=== PATIENT | female | born 1980 | race Caucasian/White ===

== ENCOUNTER → 2017-12-25 | Outpatient (CLI) | payer OTHER ==
[~2017-12-25] MED LIST: ALBINS/ INH; LEVO5TAB2 PO; LISI-729 PO; MONT1TAB3 PO; NORE-18 PO; RANI150T3 PO; VITAMIN D PO
[2017-12-25 16:36] LABS: BASO % 0.2 %; BASO ABS # 0.02 K/uL (0-0.2); EOS ABS # 0.41 K/uL (0-0.5); HEMATOCRIT 38.1 % (37-47); HEMOGLOBIN 12.5 g/dL (12.0-16.0); IG# 0.03 K/uL (0.00-0.02); LYMPH ABS # 3.54 K/uL (1.2-3.4); MEAN CELL VOLUME 83.9 fL (80-100); MEAN CORPUSCULAR HEMOGLOBIN 27.5 pg (25-34); MEAN CORPUSCULAR HGB CONC 32.8 g/dl (32-36); MEAN PLATELET VOLUME 9.3 fL (7.4-10.4); MONO % 6.7 %; MONO ABS # 0.55 K/uL (0.11-0.59); NEUT % 44.7 %; NEUT ABS # 3.68 K/uL (1.4-6.5); PLATELET COUNT 354 K/uL (130-400); RED CELL DISTRIBUTION WIDTH CV 14.8 % (11.5-14.5); RED CELL DISTRIBUTION WIDTH SD 45.3 fL (36.4-46.3); WHITE BLOOD COUNT 8.23 K/uL (4.8-10.8)
[2017-12-25 17:02] LABS: BLOOD UREA NITROGEN 10 mg/dl (7-18); CALCIUM 8.7 mg/dl (8.5-10.1); CARBON DIOXIDE 26 mmol/L (21-32); GLUCOSE 88 mg/dl (70-99); POTASSIUM 3.8 mmol/L (3.5-5.1); SODIUM 138 mmol/L (136-145)
== END | disposition home or self-care (01) ==
LOC: C.LAB1850 15:49
PROVIDERS: ATTEND Obstetrics & Gynecology
DX: Z01.818 Encounter for other preprocedural examination (principal)

== ENCOUNTER 2023-01-05 06:09 | Inpatient (IN) ==
[2023-01-05] MEDS ORDERED: KETOROLAC 30 MG/ML VIAL IV STA (06:30)
[2023-01-05 06:48] LABS: Basophils # (auto) 0.06 K/uL (0-0.2); Basophils % (auto) 0.5 %; Eosinophils # (auto) 0.28 K/uL (0-0.50); Eosinophils % (auto) 2.5 %; Hematocrit (blood only) 37.6 % (37.0-47.0); Hemoglobin 12.6 g/dl (12.0-16.0); Immature Granulocytes # (auto) 0.07 K/uL (0.01-0.20); Immature Granulocytes % (auto) 0.6 %; Lymphocytes # (auto) 2.33 K/uL (1.2-3.4); Lymphocytes % (auto) 20.5 %; Mean Corpuscular Hemoglobin 28.4 pg (25.0-34.0); Mean Corpuscular Hgb Conc 33.5 g/dL (32.0-36.0); Mean Corpuscular Volume 84.9 fL (80.0-100.0); Mean Platelet Volume 10.7 fL (9.4-12.4); Monocytes # (auto) 0.54 K/uL (0.11-0.59); Monocytes % (auto) 4.7 %; Neutrophils # (auto) 8.09 K/uL (1.40-6.50); Neutrophils % (auto) 71.2 %; Platelet Count 306 K/uL (130-400); RDW Coefficient of Variation 13.2 % (11.5-14.5); RDW Standard Deviation 40.7 fL (36.4-46.3); Red Blood Count 4.43 M/uL (4.20-5.40); White Blood Count 11.37 K/ul (4.8-10.8)
[2023-01-05 06:56] LABS: Albumin Globulin Ratio 1.3 (0.9-2); Albumin Level 4.2 gm/dl (3.4-5.0); BUN Creatinine Ratio 7.8 (10-20); Bilirubin,Total 0.4 mg/dl (0.2-1.0); Calcium 9.2 mg/dl (8.6-10.3); Creatinine Clr Calc Pharmacy 78.1 ml/min; Est GFR (African American) 91.4 ml/min; Est GFR (Non-African American) 78.9 ml/min; Globulin 3.3 gm/dl (2.5-4.0); Potassium 3.2 mmol/L (3.5-5.1); Total Protein 7.5 gm/dl (6.0-8.3)
--- NOTE | 2023-01-05 07:22 | XRay Report ---
SINGLE VIEW CHEST CLINICAL HISTORY: Atypical chest pain. FINDINGS: An AP, portable, upright chest radiograph is compared to study dated 01/25/2012. The cardiom ediastinal silhouette is unremarkable. The lungs and pleural spaces are clear noting mild bibasilar a telectasis. No pneumothorax is seen. The bony thorax is grossly intact. IMPRESSION: No active disease in the chest. ACT 112: Negative or not required by law. Electronically signed by: Thien Berrios M.D. 01/05/2023 7:21 AM
--- NOTE | 2023-01-05 07:58 | Emergency Department Note ---
Impression & Plan Chest pain ED Provider Note INFORMANT: Patient ED PROVIDER(S): Cornelius Johnson DO CHIEF COMPLAINT: Retrosternal chest pain to the back PLAN: Disposition: Admission Outpatient prescription management: [none] Discussion with: Surgery and medicine service MEDICAL DECISION MAKING: This is a 42-year-old female who presents to the ED with a chief complaint of retrosternal chest pain that radiates into her back. She states that her symptoms started at 2:30 in the morning. She awoke with them. She states that she took some ibuprofen but shortly thereafter vomited around 3 AM. She also reports some cold sweats. She states now that her pain is just all and not as bad. The patient states that she last ate around suppertime. She had some salad and chicken. On my exam the patient has some tenderness in the epigastric area and right upper quadrant. She otherwise has a normal exam. Lungs are clear. Heart is regular rate and rhythm. Abdomen is otherwise nontender in other areas. No rashes. The patient did have a 10 beat run of V. tach while she was on the monitor in the emergency department. She was symptomatic with this and felt like her heart stopped and then raised. The patient's vital signs here are normal. Her CBC did not show leukocytosis or anemia. Chemistry panel was unremarkable for electrolyte abnormality or kidney dysfunction. Troponin was negative for myocardial infarction or myocarditis. Lipase was negative for pancreatitis. Chest x-ray did not show pneumonia. An EKG shows a sinus bradycardia without ischemic changes. The patient's ultrasound shows findings concerning for acute cholecystitis. I did speak with general surgery as well as the medicine service on the patient. She will be seen for further evaluation and care. Triage Nursing notes reviewed. Vital Signs: reviewed Prior /Outside records reviewed: [none] Differential diagnosis: The differential that was considered includes acute myocardial infarction, acute coronary syndrome, myocarditis, pericarditis, pericardial effusions /tamponade, esophageal perforation, thoracic aortic dissection, pulmonary embolism, pneumonia, pneumothorax, pancreatitis, shingles, acute cholecystitis, perforated abdominal viscus. Diagnostics, as interpreted by me: 12 lead ECG: Sinus bradycardia rate of 52. No ST elevation. No PVCs. Normal QTc. Cardiac Monitoring ordered: 10 beat run of V. tach during the emergency department visit. Otherwise sinus rhythm in the 50s and 60s Medical decision rules: [none] Imaging studies: Chest x-ray: Negative for acute disease. No pneumonia. Gallbladder ultrasound: Cholelithiasis and biliary sludge. Procedures: none. Critical care: none. HPI: See MDM above. PAST MEDICAL HISTORY: See Below PAST SURGICAL HISTORY: See Below SOCIAL HISTORY: See Below HOME MEDICATIONS:See Below ALLERGIES: See Below VITALS: See Below PHYSICAL EXAMINATION: See MDM for positive findings otherwise unremarkable. CONSTITUTIONAL/VITAL SIGNS: Reviewed GENERAL:done as appropriate INTEGUMENTARY: done as appropriate HEAD: done as appropriate EYES: done as appropriate RESPIRATORY: done as appropriate CARDIOVASCULAR:done as appropriate GI/ABDOMEN:done as appropriate EXTREMITIES: done as appropriate NEUROLOGICAL: done as appropriate PSYCHIATRIC:done as appropriate MUSCULOSKELETAL:done as appropriate TRIAGE NURSING DOCUMENTATION REVIEWED. Past Med/Surg History Medical History (Updated 01/05/23 @ 10:42 by Debbie Romero PA-C) Endometriosis GERD (gastroesophageal reflux disease) HTN (hypertension) Kidney stone Pelvic pain Surgical History H/O laparoscopy H/O: hysterectomy S/P tooth extraction Family History Grandmother (Maternal) Breast cancer Grandfather (Maternal) Diabetes Heart disease Mother Hypertension Father Hypertension Aunt Ovarian cancer maternal Grandfather (Paternal) Heart disease Social History Smoking Status: Current every day smoker packs per day: 1; Cigarettes Per Day: 10-20; Do You Dip or Chew Tobacco: No; Preferred Language: Grenadian 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 have: 2 Feels Safe at Home: Yes Allergies Allergies Allergy/AdvReac Type Severity Reaction Status Date / Time Sulfa (Sulfonamide Allergy Severe SHORTNESS Verified 01/05/23 09:08 Antibiotics) OF BREATH adhesive Allergy Intermediate Rash Verified 01/05/23 09:08 Aminoglycosides Allergy Intermediate RASH Verified 01/05/23 09:08 bacitracin Allergy Intermediate RASH Verified 01/05/23 09:08 neomycin Allergy Intermediate RASH Verified 01/05/23 09:08 polymyxin B Allergy Intermediate RASH Verified 01/05/23 09:08 Home Meds Home Medications Medication Instructions Recorded Confirmed levocetirizine 5 mg tablet (Xyzal) 5 mg PO HS 07/29/19 01/05/23 montelukast 10 mg tablet 10 mg PO HS 07/29/19 01/05/23 lisinopril 5 mg tablet 5 mg PO DAILY 09/09/22 01/05/23 omeprazole 20 mg capsule,delayed 20 mg PO DAILY 09/09/22 01/05/23 release Results & Data (ED) Vital Signs Vital Signs - 24 hr 01/05/23 06:17 01/05/23 06:23 01/05/23 06:15 Temperature 36.4 C L Temperature Source Oral Pulse Rate 60 70 58 L Pulse Rate from SpO2 Sensor Pulse Rhythm Regular Respiratory Rate 20 20 Respiratory Depth Shallow Blood Pressure 133/72 Blood Pressure Mean 92 Pulse Oximetry 98 99 Oxygen Delivery Method Room Air Room Air Sepsis Recent Fever Within 48 Hours No Sepsis New/Unexplained Change in Mental Status No Sepsis Action Taken by Nursing No Action Required 01/05/23 07:00 01/05/23 07:30 01/05/23 08:30 Temperature Temperature Source Pulse Rate 53 L 55 L 67 Pulse Rate from SpO2 Sensor 53 L 55 L 65 Pulse Rhythm Respiratory Rate 21 16 18 Respiratory Depth Blood Pressure 122/74 119/74 124/76 Blood Pressure Mean 90 89 92 Pulse Oximetry 96 97 98 Oxygen Delivery Method Sepsis Recent Fever Within 48 Hours Sepsis New/Unexplained Change in Mental Status Sepsis Action Taken by Nursing 01/05/23 09:00 01/05/23 09:30 01/05/23 10:00 Temperature Temperature Source Pulse Rate 76 69 71 Pulse Rate from SpO2 Sensor 79 70 72 Pulse Rhythm Respiratory Rate 17 18 18 Respiratory Depth Blood Pressure 135/76 129/85 131/79 Blood Pressure Mean 95 99 96 Pulse Oximetry 96 97 97 Oxygen Delivery Method Sepsis Recent Fever Within 48 Hours Sepsis New/Unexplained Change in Mental Status Sepsis Action Taken by Nursing 01/05/23 10:30 Temperature Temperature Source Pulse Rate 72 Pulse Rate from SpO2 Sensor 73 Pulse Rhythm Respiratory Rate 15 Respiratory Depth Blood Pressure 122/86 Blood Pressure Mean 98 Pulse Oximetry 97 Oxygen Delivery Method Sepsis Recent Fever Within 48 Hours Sepsis New/Unexplained Change in Mental Status Sepsis Action Taken by Nursing Laboratory Data 01/05/23 06:13 01/05/23 06:13 Lab Results 01/05/23 01/05/23 01/05/23 Range/Units 06:13 06:13 09:00 WBC 11.37 H (4.8-10.8) K/ul RBC 4.43 (4.20-5.40) M/uL Hgb 12.6 (12.0-16.0) g/dl Hct 37.6 (37.0-47.0) % MCV 84.9 (80.0-100.0) fL MCH 28.4 (25.0-34.0) pg MCHC 33.5 (32.0-36.0) g/dL RDW Std Deviation 40.7 (36.4-46.3) fL RDW Coeff of Aayush 13.2 (11.5-14.5) % Plt Count 306 (130-400) K/uL MPV 10.7 (9.4-12.4) fL Immature Gran % (Auto) 0.6 % Neut % (Auto) 71.2 % Lymph % (Auto) 20.5 % [place] % (Auto) 4.7 % Eos % (Auto) 2.5 % Baso % (Auto) 0.5 % Neut # (Auto) 8.09 H (1.40-6.50) K/uL Lymph # (Auto) 2.33 (1.2-3.4) K/uL [place] # (Auto) 0.54 (0.11-0.59) K/uL Eos # (Auto) 0.28 (0-0.50) K/uL Baso # (Auto) 0.06 (0-0.2) K/uL Immature Gran # (Auto) 0.07 (0.01-0.20) K/uL Sodium 140 (136-145) mmol/L Potassium 3.2 L (3.5-5.1) mmol/L Chloride 106 (98-107) mmol/L Carbon Dioxide 25 (21-32) mmol/L Anion Gap 9 (3-11) BUN 7 (6-23) mg/dl Creatinine 0.90 (0.6-1.2) mg/dl Est Cr Clr Drug Dosing 78.1 ml/min Est GFR ( Amer) 91.4 ml/min Est GFR (Non-Af Amer) 78.9 ml/min BUN/Creatinine Ratio 7.8 L (10-20) Glucose 128 H (70-99(Fasting)) mg/dl Calcium 9.2 (8.6-10.3) mg/dl Total Bilirubin 0.4 (0.2-1.0) mg/dl AST 24 (13-39) U/L ALT 31 (7-52) U/L Alkaline Phosphatase 95 (34-104) U/L Troponin I High Sens 3.0 (0-14) pg/ml Total Protein 7.5 (6.0-8.3) gm/dl Albumin 4.2 (3.4-5.0) gm/dl Globulin 3.3 (2.5-4.0) gm/dl Albumin/Globulin Ratio 1.3 (0.9-2) Lipase 25 (11-82) U/L SARS-CoV-2, RNA, NAAT NEGATIVE (NEGATIVE) Administered Medications Discontinued Medications Ketorolac Tromethamine (Ketorolac 30 Mg/Ml Vial) 30 mg IV NOW STA Stop: 01/05/23 06:31 Last Admin: 01/05/23 06:32 Dose: 30 mg Documented By: BENNY Imaging Data Radiologist's Impression: Chest X-Ray 01/05/23 06:07 SINGLE VIEW CHEST CLINICAL HISTORY: Atypical chest pain. FINDINGS: An AP, portable, upright chest radiograph is compared to study dated 01/25/2012. The cardiomediastinal silhouette is unremarkable. The lungs and pleural spaces are clear noting mild bibasilar atelectasis. No pneumothorax is seen. The bony thorax is grossly intact. IMPRESSION: No active disease in the chest. ACT 112: Negative or not required by law. Electronically signed by: Thien Berrios M.D. 01/05/2023 7:21 AM Gallbladder Ultrasound 01/05/23 06:57 ULTRASOUND RIGHT UPPER QUADRANT ABDOMEN CLINICAL HISTORY: Right upper quadrant abdominal pain. COMPARISON STUDY: Abdominal CT dated 09/26/2014. TECHNIQUE: Real-time, grayscale, and color flow sonography of the right upper quadrant of the abdomen was performed. Images are reviewed in the transverse and longitudinal planes. FINDINGS: Liver: The liver is normal in size and echotexture. There is no intrahepatic biliary ductal dilatation. The main portal vein is patent. Gallbladder: The gallbladder is mildly distended and contains both stones and sludge. The gallbladder wall is mildly thickened measuring up to 4 mm and there is mild edematous. No pericholecystic fluid as seen. A sonographic Klein's sign could not be evaluated as the patient received analgesia. The common bile duct measures up to 0.4 cm in diameter. Pancreas: Visualized portions of the pancreatic head are normal in appearance. The majority of the pancreas was not well-visualized due to overlying bowel gas. Right kidney: Survey images of the right kidney demonstrate normal size and echotexture. There is no hydronephrosis. 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 Ascites: None. IMPRESSION: 1. Cholelithiasis and biliary sludge within an abnormal appearing gallbladder. Acute cholecystitis is not excluded and surgical consultation is advised. If c linically warranted a nuclear hepatobiliary scan would be confirmatory. 2. There is no intra or extrahepatic biliary ductal dilatation. ACT 112: Negative or not required by law. Electronically signed by: Thien Berrios M.D. 01/05/2023 8:20 AM Discharge Plan Visit Data Chief Complaint: Chest Pain Stated Complaint: chest pain ED Provider: Cornelius Johnson Discharge Problem: Chest pain Patient Disposition: Being Evaluated by Hospitalist Forms Stand Alone Forms: [facility] Prescriptions Prescriptions: No Action lisinopril 5 mg tablet 5 mg PO DAILY omeprazole 20 mg capsule,delayed release(DR/EC) 20 mg PO DAILY montelukast 10 mg tablet 10 mg PO HS levocetirizine [Xyzal] 5 mg Tablet 5 mg PO HS Referrals Referrals: Ashley Razo DO [Primary Care Provider] -
--- NOTE | 2023-01-05 08:23 | Ultrasound Report ---
ULTRASOUND RIGHT UPPER QUADRANT ABDOMEN CLINICAL HISTORY: Right upper quadrant abdominal pain. COMPARISON STUDY: Abdominal CT dated 09/26/2014. TECHNIQUE: Real-time, grayscale, and color flow sonography of the right upper quadrant of the abdomen was performed. Images are reviewed in the transverse and longitudinal planes. FINDINGS: Liver: The liver is normal in size and echotexture. There is no intrahepatic biliary ductal dilatatio n. The main portal vein is patent. Gallbladder: The gallbladder is mildly distended and contains both stones and sludge. The gallbladder wall is mildly thickened measuring up to 4 mm and there is mild edematous. No pericholecystic fluid as seen. A sonographic Klein's sign could not be evaluated as the patient received analgesia. The co mmon bile duct measures up to 0.4 cm in diameter. Pancreas: Visualized portions of the pancreatic head are normal in appearance. The majority of the pa ncreas was not well-visualized due to overlying bowel gas. Right kidney: Survey images of the right kidney demonstrate normal size and echotexture. There is no hydronephrosis. 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 Ascites: None. IMPRESSION: 1. Cholelithiasis and biliary sludge within an abnormal appearing gallbladder. Acute cholecystitis is not excluded and surgical consultation is advised. If clinically warranted a nuclear hepatobiliary s can would be confirmatory. 2. There is no intra or extrahepatic biliary ductal dilatation. ACT 112: Negative or not required by law. Electronically signed by: Thien Berrios M.D. 01/05/2023 8:20 AM
--- NOTE | 2023-01-05 08:59 | Electrocardiogram Report ---
Test Reason : Blood Pressure : / mmHG Vent. Rate : 055 BPM Atrial Rate : 055 BPM P-R Int : 112 ms QRS Dur : 086 ms QT Int : 358 ms P-R-T Axes : 014 016 139 degrees QTc Int : 342 ms Poor data quality, interpretation may be adversely affected Sinus bradycardia Diffuse Minor Nonspecific T wave abnormality Abnormal ECG When compared with ECG of 10-JUN-2014 12:09, Vent. rate has decreased BY 52 BPM Confirmed by Mihir Loving ([id number]) on 01/05/2023 8:59:26 AM Referred By: Confirmed By:Mihir Loving
--- NOTE | 2023-01-05 09:55 | History & Physical Report ---
Date of Service January 05, 2023 Assessment & Plan (1) V-tach: (2) HTN (hypertension): (3) Chest pain: Plan: - Admit to tele - Trend cardiac biomarkers, initial set was negative at 3 - EKG reviewed as above. Monitor strip showing 10 beats of V. tach was reviewed, patient reports she was symptomatic during the event with chest pain, shortness of breath. Pt having more symptoms during my visit, will recheck troponin now - monitor does not show any events currently - Consult cardiology - need clearance for possible lap mirella later today - Check 2 D echo - Pt is on low dose lisinopril, BP 130/70 - did not take meds this morning due to vomiting. Will change to IV meds for BP control and can transition once tolerated (4) Acute cholecystitis: Plan: - General surgery consulted-discussed at bedside, will keep n.p.o. for possible laparoscopic cholecystectomy later this afternoon, last time she ate was 2:30 PM on 01/04 - IV abx with zosyn , WBC is 11K , Blood cultures x 2 - Abdominal imaging reviewed: Cholelithiasis and biliary sludge within an abnormal appearing gallbladder. Acute cholecystitis is not excluded and surgical consultation is advised. - NSS at 80 ml/hr - Pain medication, antiemetics ordered (5) GERD (gastroesophageal reflux disease): Plan: - omeprazole po at home, will resume once the above resolved DVT ppx: - teds, scds CODE: Full code Dispo: From home, likely to remain in the hospital x 1-2 days A total of 75 minutes were spent with greater than 50% of that time face to face with the patient, personally reviewing all current laboratories, imaging studies, past medication reconciliation, outpatient chart review, and discussion with specialists to collaborate care for the patient with attending. Please see attending documentation for corrections and/or additions. History of Present Illness Chief Complaint: Chest pain Primary Care Provider: Ashley Razo, This is a 42 yo F with PMHx of HTN, GERD, hysterectomy who presents with acute onset of abdominal pain in the epigastric region and chest pain which radiated into back. She had cold sweats and nausea, and vomited every hour until calling an ambulance this morning. Pt reports her pain is right under her sternum and at the bottom of it and in the right upper quadrant. Rating it a 6/10. She state it has localized more in the RUQ and denies having chest pain currently. Pt lives at home with her two sons, ages 5 and 13, and boyfriend. Pt denies ever having pain like this before. She reports pain is improved with toradol for pain. She last at 2:30 pm yesterday and had a buffalo chicken salad for lunch and dinner. Did not tolerate any of her morning medications due to vomiting. Allergies Allergy/AdvReac Type Severity Reaction Status Date / Time Sulfa (Sulfonamide Allergy Severe SHORTNESS Verified 01/05/23 09:08 Antibiotics) OF BREATH adhesive Allergy Intermediate Rash Verified 01/05/23 09:08 Aminoglycosides Allergy Intermediate RASH Verified 01/05/23 09:08 bacitracin Allergy Intermediate RASH Verified 01/05/23 09:08 neomycin Allergy Intermediate RASH Verified 01/05/23 09:08 polymyxin B Allergy Intermediate RASH Verified 01/05/23 09:08 Home Medications Medication Instructions Recorded Confirmed Type levocetirizine 5 mg tablet (Xyzal) 5 mg PO HS 07/29/19 01/05/23 History montelukast 10 mg tablet 10 mg PO HS 07/29/19 01/05/23 History lisinopril 5 mg tablet 5 mg PO DAILY 09/09/22 01/05/23 History omeprazole 20 mg capsule,delayed 20 mg PO DAILY 09/09/22 01/05/23 History release Past Med/Surg History Medical History Endometriosis GERD (gastroesophageal reflux disease) HTN (hypertension) Kidney stone Pelvic pain Surgical History H/O laparoscopy H/O: hysterectomy S/P tooth extraction Family History Grandmother (Maternal) Breast cancer Grandfather (Maternal) Diabetes Heart disease Mother Hypertension Father Hypertension Aunt Ovarian cancer maternal Grandfather (Paternal) Heart disease Social History Smoking Status: Current every day smoker packs per day: 1; Cigarettes Per Day: 1 pack per day; Do You Dip or Chew Tobacco: No; Hx Alcohol Use: Yes Hx Substance Use: No Preferred Language: Bulgarian Communication Ability: Effective Pharmacist Technician Required: No Beliefs That Will Affect Care: None Current Living Situation: Other Current Living Situation Comment: Lives with 2 children 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 have: 2 Feels Safe at Home: Yes Safety Concerns: Feels Safe At This Time Review of Systems Review of Systems: Constitutional: No fever, + sweats and chills Eyes: No diplopia, no worsening or blurred vision ENT: normal hearing, no trouble swallowing Respiratory: No cough, sputum, dyspnea at rest or on exertion Cardiovascular: No chest pain, tightness or palpitations Abdomen: + RUQ pain, nausea, and vomiting as per HPI, no diarrhea or constipation Musculoskeletal: No joint pain, calf pain, swelling Neurologic: No weakness, numbness/tingling, or balance problems Psychiatric: No anxiety or depression Skin: No rash or itch Physical Exam Physical Exam: General: awake, alert, + apparent distress Head: Normocephalic, atraumatic ENT: PERRL, EOMI, no pharyngeal exudate, mucous membranes moist Chest: Clear to auscultation, on room air, no adventitious breath sounds Cardiac: Regular rate and rhythm, no murmur, no JVD, normal peripheral pulses, good capillary refill Abdominal: NABS x 4 quadrants, soft, nondistended, nontender to palpation, no rebound or guarding Extremities: Normal inspection, no peripheral edema or erythema, calfs nontender to palpation Psych: Normal mood and affect Neuro: AAO x 3, strength intact bilaterally and rated 5/5, no motor deficits, speech is clear, no peripheral sensory deficits Results & Data Results & Data Vital Signs (Past 12 Hours) Vital Signs Temp Pulse Resp BP Pulse Ox O2 Del Method 01/05/23 08:30 67 18 124/76 98 01/05/23 07:30 55 L 16 119/74 97 01/05/23 07:00 53 L 21 122/74 96 01/05/23 06:15 58 L 01/05/23 06:23 70 20 99 Room Air 01/05/23 06:17 36.4 C L 60 20 133/72 98 Room Air Laboratory Results 01/05/23 01/05/23 01/05/23 09:00 06:13 06:13 WBC 11.37 H RBC 4.43 Hgb 12.6 Hct 37.6 MCV 84.9 MCH 28.4 MCHC 33.5 RDW Std Deviation 40.7 RDW Coeff of Aayush 13.2 Plt Count 306 MPV 10.7 Immature Gran % (Auto) 0.6 Neut % (Auto) 71.2 Lymph % (Auto) 20.5 [place] % (Auto) 4.7 Eos % (Auto) 2.5 Baso % (Auto) 0.5 Neut # (Auto) 8.09 H Lymph # (Auto) 2.33 [place] # (Auto) 0.54 Eos # (Auto) 0.28 Baso # (Auto) 0.06 Immature Gran # (Auto) 0.07 Sodium 140 Potassium 3.2 L Chloride 106 Carbon Dioxide 25 Anion Gap 9 BUN 7 Creatinine 0.90 Est Cr Clr Drug Dosing 78.1 Est GFR ( Amer) 91.4 Est GFR (Non-Af Amer) 78.9 BUN/Creatinine Ratio 7.8 L Glucose 128 H Calcium 9.2 Total Bilirubin 0.4 AST 24 ALT 31 Alkaline Phosphatase 95 Troponin I High Sens 3.0 Total Protein 7.5 Albumin 4.2 Globulin 3.3 Albumin/Globulin Ratio 1.3 Lipase 25 SARS-CoV-2, RNA, NAAT NEGATIVE Diagnostic Findings Chest X-Ray 01/05/23 06:07 SINGLE VIEW CHEST CLINICAL HISTORY: Atypical chest pain. FINDINGS: An AP, portable, upright chest radiograph is compared to study dated 01/25/2012. The cardiomediastinal silhouette is unremarkable. The lungs and pleural spaces are clear noting mild bibasilar atelectasis. No pneumothorax is seen. The bony thorax is grossly intact. IMPRESSION: No active disease in the chest. ACT 112: Negative or not required by law. Electronically signed by: Thien Berrios M.D. 01/05/2023 7:21 AM Gallbladder Ultrasound 01/05/23 06:57 ULTRASOUND RIGHT UPPER QUADRANT ABDOMEN CLINICAL HISTORY: Right upper quadrant abdominal pain. COMPARISON STUDY: Abdominal CT dated 09/26/2014. TECHNIQUE: Real-time, grayscale, and color flow sonography of the right upper quadrant of the abdomen was performed. Images are reviewed in the transverse and longitudinal planes. FINDINGS: Liver: The liver is normal in size and echotexture. There is no intrahepatic biliary ductal dilatation. The main portal vein is patent. Gallbladder: The gallbladder is mildly distended and contains both stones and sludge. The gallbladder wall is mildly thickened measuring up to 4 mm and there is mild edematous. No pericholecystic fluid as seen. A sonographic Klein's sign could not be evaluated as the patient received analgesia. The common bile duct measures up to 0.4 cm in diameter. Pancreas: Visualized portions of the pancreatic head are normal in appearance. The majority of the pancreas was not well-visualized due to overlying bowel gas. Right kidney: Survey images of the right kidney demonstrate normal size and echotexture. There is no hydronephrosis. 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 Ascites: None. IMPRESSION: 1. Cholelithiasis and biliary sludge within an abnormal appearing gallbladder. Acute cholecystitis is not excluded and surgical consultation is advised. If clinically warranted a nuclear hepatobiliary scan would be confirmatory. 2. There is no intra or extrahepatic biliary ductal dilatation. ACT 112: Negative or not required by law. Electronically signed by: Thien Berrios M.D. 01/05/2023 8:20 AM Code Status & VTE Plan Code Status Full code - discussed with the patient at bedside Supervising Physician Co-Signing Physician Notes Pt seen and examined by myself, Saadia Lewis MD on the day of service. Care was coordinated with Debbie Romero PA-C. Please refer to her note for additional information. 42yo F with acute cholecystis and noted run of ventricular tachycardia. General surgery consult for cholecystectomy with cardiology consult for clearance given noted v tach. NPO, IV abx, pain control Otherwise as above.
[2023-01-05] MEDS ORDERED: SODIUM CHLORIDE 0.9% 1000ML 1,000 ML IV SCH (10:15)
[2023-01-05] MEDS ORDERED: PIPERACILLIN/TAZOBACTAM 4.5 GM in DEXTROSE 5% 100 ML IV ONE (10:36)
[2023-01-05] MEDS ORDERED: PIPERACILLIN/TAZOBACTAM 4.5 GM/120 ML BAG IV ONE (10:36)
[2023-01-05] MEDS ORDERED: hydrALAZINE HCL 20 MG/ML VIAL IV PRN (10:41)
[2023-01-05] MEDS ORDERED: HYDROmorphone INJ 0.5 MG/0.5 ML SYR IV PRN (11:26)
[2023-01-05] MEDS ORDERED: ONDANSETRON INJ 2 MG/ML 2 ML VIAL IV PRN ×2 (11:26→12:31)
[2023-01-05] MEDS ORDERED: ACETAMINOPHEN 325 MG TAB PO PRN (11:26)
--- NOTE | 2023-01-05 11:48 | Cardiology Consultation ---
Date of Consultation January 05, 2023 Assessment & Plan (1) Acute cholecystitis: (2) Preop cardiovascular exam: Plan Utilizing the Ed the criteria for risk assessment, the patient's calculated risk for this surgery is 0.4%. I do not believe any additional cardiac testing is indicated. I would correct her potassium by adding potassium to her IV fluid. I think she can proceed to surgery with a very low risk of cardiovascular event. History of Present Illness Attending Physician: Saadia Lewis MD History of Present Illness This is a 42-year-old female with minimal past medical history and no previous history of heart disease. She has been admitted with acute cholecystitis. She has been seen by surgery and is scheduled for the OR later today. Her presenting symptoms were right upper quadrant discomfort and nausea and vomiting through the night. According to records she had a brief run of wide-complex arrhythmia in the emergency department. I do not have any strips or telemetry available to me from that brief episode. She is currently in a sinus rhythm. EKG is essentially normal. The only clinical finding of concern is a potassium of 3.2 which is likely related to her vomiting. The patient is a nondiabetic with no history of high cholesterol or hypertension. No family history of heart disease before the age of 60. Her only risk factor unfortunately is smoking which she started about 4 years ago. Allergies Allergy/AdvReac Type Severity Reaction Status Date / Time Sulfa (Sulfonamide Allergy Severe SHORTNESS Verified 01/05/23 09:08 Antibiotics) OF BREATH adhesive Allergy Intermediate Rash Verified 01/05/23 09:08 Aminoglycosides Allergy Intermediate RASH Verified 01/05/23 09:08 bacitracin Allergy Intermediate RASH Verified 01/05/23 09:08 neomycin Allergy Intermediate RASH Verified 01/05/23 09:08 polymyxin B Allergy Intermediate RASH Verified 01/05/23 09:08 Home Medications Medication Instructions Recorded Confirmed Type levocetirizine 5 mg tablet (Xyzal) 5 mg PO HS 07/29/19 01/05/23 History montelukast 10 mg tablet 10 mg PO HS 07/29/19 01/05/23 History lisinopril 5 mg tablet 5 mg PO DAILY 09/09/22 01/05/23 History omeprazole 20 mg capsule,delayed 20 mg PO DAILY 09/09/22 01/05/23 History release Patient History Medical History Endometriosis GERD (gastroesophageal reflux disease) HTN (hypertension) Kidney stone Pelvic pain Surgical History H/O laparoscopy H/O: hysterectomy S/P tooth extraction Family History Grandmother (Maternal) Breast cancer Grandfather (Maternal) Diabetes Heart disease Mother Hypertension Father Hypertension Aunt Ovarian cancer maternal Grandfather (Paternal) Heart disease Social History Smoking Status: Current every day smoker packs per day: 1; Cigarettes Per Day: 1 pack per day; Do You Dip or Chew Tobacco: No; Hx Alcohol Use: Yes Hx Substance Use: No Preferred Language: Mexican Communication Ability: Effective 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 All other 10 point review of systems are negative. Physical Exam Physical Exam: Current Inpatient Medications General: no acute distress and stated age Head: normocephalic, no masses, lesions, tenderness or abnormalities Eyes: conjunctiva are pink and non-injected, sclera clear Neck: supple, no adenopathy, no bruits, normal jugular venous pulse, no hepatojugular reflux Chest: normal shape and normal respiratory effort Lungs: clear to auscultation and percussion Cardiac Exam: - regular rate & rhythm, no murmurs gallops or rubs - normal S1, normal S2 Pulses: 2(+) throughout Abdomen: abdomen soft, non-tender, no abnormal masses and no hepatosplenomegaly Musculoskeletal: no gait disturbance, no joint inflammation, no deforming arthritis Extremities: no edema and no cyanosis Neuro: grossly normal exam Results & Data Vital Signs (Past 12 Hours) Vital Signs Temp Pulse Pulse Resp BP BP Pulse Ox 01/05/23 11:29 36.7 C 76 18 130/84 94 01/05/23 11:05 72 15 122/86 97 01/05/23 10:30 72 15 122/86 97 01/05/23 10:00 71 18 131/79 97 01/05/23 09:30 69 18 129/85 97 01/05/23 09:00 76 17 135/76 96 01/05/23 08:30 67 18 124/76 98 01/05/23 07:30 55 L 16 119/74 97 01/05/23 07:00 53 L 21 122/74 96 01/05/23 06:15 58 L 01/05/23 06:23 70 20 99 01/05/23 06:17 36.4 C L 60 20 133/72 98 O2 Del Method 01/05/23 11:29 Room Air 01/05/23 11:05 Room Air 01/05/23 10:30 01/05/23 10:00 01/05/23 09:30 01/05/23 09:00 01/05/23 08:30 01/05/23 07:30 01/05/23 07:00 01/05/23 06:15 01/05/23 06:23 Room Air 01/05/23 06:17 Room Air Laboratory Results Laboratory Results - last 24 hr 01/05/23 01/05/23 01/05/23 06:13 06:13 09:00 WBC 11.37 H RBC 4.43 Hgb 12.6 Hct 37.6 MCV 84.9 MCH 28.4 MCHC 33.5 RDW Std Deviation 40.7 RDW Coeff of Aayush 13.2 Plt Count 306 MPV 10.7 Immature Gran % (Auto) 0.6 Neut % (Auto) 71.2 Lymph % (Auto) 20.5 [place] % (Auto) 4.7 Eos % (Auto) 2.5 Baso % (Auto) 0.5 Neut # (Auto) 8.09 H Lymph # (Auto) 2.33 [place] # (Auto) 0.54 Eos # (Auto) 0.28 Baso # (Auto) 0.06 Immature Gran # (Auto) 0.07 Sodium 140 Potassium 3.2 L Chloride 106 Carbon Dioxide 25 Anion Gap 9 BUN 7 Creatinine 0.90 Est Cr Clr Drug Dosing 78.1 Est GFR ( Amer) 91.4 Est GFR (Non-Af Amer) 78.9 BUN/Creatinine Ratio 7.8 L Glucose 128 H Calcium 9.2 Total Bilirubin 0.4 AST 24 ALT 31 Alkaline Phosphatase 95 Troponin I High Sens 3.0 Total Protein 7.5 Albumin 4.2 Globulin 3.3 Albumin/Globulin Ratio 1.3 Lipase 25 SARS-CoV-2, RNA, NAAT NEGATIVE Medications Administered Current Inpatient Medications Acetaminophen (Acetaminophen 325 Mg Tab) 650 mg PO Q4H PRN PRN Reason: Moderate Pain (Scale 4, 5, 6) Stop: 02/04/23 11:25 Hydralazine HCl (Hydralazine Hcl 20 Mg/Ml Vial) 10 mg IV Q6H PRN PRN Reason: Hypertension Stop: 02/04/23 10:40 Hydromorphone HCl (Hydromorphone Inj 0.5 Mg/0.5 Ml Syr) 0.5 mg IV Q6H PRN PRN Reason: Pain Stop: 01/19/23 11:25 Piperacillin Sod/Tazobactam (Sod 4.5 gm/ Dextrose) 120 mls @ 30 mls/hr IV Q8H SHAAN; Protocol Stop: 01/15/23 17:59 Potassium Chloride/Sodium Chloride (Normal Saline W/20 Meq Kcl) 20 meq in 1,000 mls @ 80 mls/hr IV .[id number] SHAAN; Protocol Stop: 02/04/23 11:44 Ketorolac Tromethamine (Ketorolac Tromethamine 15 Mg/Ml Vial) 15 mg IV Q6H PRN PRN Reason: Pain Stop: 01/10/23 10:01 Ondansetron HCl (Ondansetron Inj 2 Mg/Ml 2 Ml Vial) 4 mg IV Q4H PRN PRN Reason: Nausea And Vomiting Stop: 02/04/23 11:25
[2023-01-05] MEDS: KETOROLAC TROMETHAMINE 15 MG/ML VIAL IV PRN ×2 (12:02→23:07)
--- NOTE | 2023-01-05 12:21 | Surgery Consultation ---
Date of Consultation January 05, 2023 Assessment & Plan (1) Acute cholecystitis: (2) V-tach: Plan 42-year-old woman with acute cholecystitis. I had a discussion with the sign designer who does not believe she requires further evaluation prior to surgery. I discussed with her the risks and benefits of a laparoscopic cholecystectomy. We discussed the postoperative course and recovery as well as restrictions. All her questions were answered, she is agreeable to proceed. Consent has been obtained. We will take her to the operating room at the earliest convenience. History of Present Illness Reason for Consultation: acute cholecystitis Requesting Physician: ED Physician Attending Physician: Saadia Lewis MD History of Present Illness 43-year-old woman in prior normal state of health was a woken from sleep last night with severe epigastric pain radiating to her back and around her right and left side. She denies any prior pain to this magnitude. She denies nausea and vomiting. She denied fevers and chills. EKG and initial troponin were normal. In the emergency department, she did have a short run of V. tach. Cardiology was consulted, Dr. Polanco. Ultrasound demonstrates acute cholecystitis. White blood cell count is 11, LFTs are normal. Allergies Allergy/AdvReac Type Severity Reaction Status Date / Time Sulfa (Sulfonamide Allergy Severe SHORTNESS Verified 01/05/23 09:08 Antibiotics) OF BREATH adhesive Allergy Intermediate Rash Verified 01/05/23 09:08 Aminoglycosides Allergy Intermediate RASH Verified 01/05/23 09:08 bacitracin Allergy Intermediate RASH Verified 01/05/23 09:08 neomycin Allergy Intermediate RASH Verified 01/05/23 09:08 polymyxin B Allergy Intermediate RASH Verified 01/05/23 09:08 Home Medications Medication Instructions Recorded Confirmed Type levocetirizine 5 mg tablet (Xyzal) 5 mg PO HS 07/29/19 01/05/23 History montelukast 10 mg tablet 10 mg PO HS 07/29/19 01/05/23 History lisinopril 5 mg tablet 5 mg PO DAILY 09/09/22 01/05/23 History omeprazole 20 mg capsule,delayed 20 mg PO DAILY 09/09/22 01/05/23 History release Patient History Medical History Endometriosis GERD (gastroesophageal reflux disease) HTN (hypertension) Kidney stone Pelvic pain Surgical History H/O laparoscopy H/O: hysterectomy S/P tooth extraction Family History Grandmother (Maternal) Breast cancer Grandfather (Maternal) Diabetes Heart disease Mother Hypertension Father Hypertension Aunt Ovarian cancer maternal Grandfather (Paternal) Heart disease Social History Smoking Status: Current every day smoker packs per day: 1; Cigarettes Per Day: 1 pack per day; Do You Dip or Chew Tobacco: No; Hx Alcohol Use: Yes Hx Substance Use: No Preferred Language: Turkish Communication Ability: Effective 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 Beliefs That Will Affect Care: None Current Living Situation: Other Current Living Situation Comment: Lives with 2 children 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 have: 2 Feels Safe at Home: Yes Safety Concerns: Feels Safe At This Time Review of Systems Review of Systems: All systems reviewed & are unremarkable except as noted in HPI & below Physical Exam Constitutional: WD/WN, vitals as above Eyes: PERRL, conjunctivae normal, anicteric sclerae Neck: trachea midline, no thyromegaly Respiratory: normal respiratory effort; no respiratory distress and no labored breathing Cardiovascular: Rate/Rhythm: regular rate and regular rhythm Gastrointestinal (Abdomen): Inspection/Auscultation: abdomen normal to inspection; abdomen not distended Percussion/Palpation: + abdomen tender (RUQ) and abdomen soft; no guarding and abdomen not rigid Skin: no rashes, warm and dry Psychiatric: A+Ox3, euthymic affect Results & Data Vital Signs (Past 12 Hours) Vital Signs Temp Pulse Pulse Resp BP BP Pulse Ox 01/05/23 11:29 36.7 C 76 18 130/84 94 01/05/23 11:05 72 15 122/86 97 01/05/23 10:30 72 15 122/86 97 01/05/23 10:00 71 18 131/79 97 01/05/23 09:30 69 18 129/85 97 01/05/23 09:00 76 17 135/76 96 01/05/23 08:30 67 18 124/76 98 01/05/23 07:30 55 L 16 119/74 97 01/05/23 07:00 53 L 21 122/74 96 01/05/23 06:15 58 L 01/05/23 06:23 70 20 99 01/05/23 06:17 36.4 C L 60 20 133/72 98 O2 Del Method 01/05/23 11:29 Room Air 01/05/23 11:05 Room Air 01/05/23 10:30 01/05/23 10:00 01/05/23 09:30 01/05/23 09:00 01/05/23 08:30 01/05/23 07:30 01/05/23 07:00 01/05/23 06:15 01/05/23 06:23 Room Air 01/05/23 06:17 Room Air Laboratory Results 01/05/23 01/05/23 01/05/23 Range/Units 09:00 06:13 06:13 WBC 11.37 H (4.8-10.8) K/ul RBC 4.43 (4.20-5.40) M/uL Hgb 12.6 (12.0-16.0) g/dl Hct 37.6 (37.0-47.0) % MCV 84.9 (80.0-100.0) fL MCH 28.4 (25.0-34.0) pg MCHC 33.5 (32.0-36.0) g/dL RDW Std Deviation 40.7 (36.4-46.3) fL RDW Coeff of Aayush 13.2 (11.5-14.5) % Plt Count 306 (130-400) K/uL MPV 10.7 (9.4-12.4) fL Immature Gran % (Auto) 0.6 % Neut % (Auto) 71.2 % Lymph % (Auto) 20.5 % [place] % (Auto) 4.7 % Eos % (Auto) 2.5 % Baso % (Auto) 0.5 % Neut # (Auto) 8.09 H (1.40-6.50) K/uL Lymph # (Auto) 2.33 (1.2-3.4) K/uL Gilliam # (Auto) 0.54 (0.11-0.59) K/uL Eos # (Auto) 0.28 (0-0.50) K/uL Baso # (Auto) 0.06 (0-0.2) K/uL Immature Gran # (Auto) 0.07 (0.01-0.20) K/uL Sodium 140 (136-145) mmol/L Potassium 3.2 L (3.5-5.1) mmol/L Chloride 106 (98-107) mmol/L Carbon Dioxide 25 (21-32) mmol/L Anion Gap 9 (3-11) BUN 7 (6-23) mg/dl Creatinine 0.90 (0.6-1.2) mg/dl Est Cr Clr Drug Dosing 78.1 ml/min Est GFR ( Amer) 91.4 ml/min Est GFR (Non-Af Amer) 78.9 ml/min BUN/Creatinine Ratio 7.8 L (10-20) Glucose 128 H (70-99(Fasting)) mg/dl Calcium 9.2 (8.6-10.3) mg/dl Total Bilirubin 0.4 (0.2-1.0) mg/dl AST 24 (13-39) U/L ALT 31 (7-52) U/L Alkaline Phosphatase 95 (34-104) U/L Troponin I High Sens 3.0 (0-14) pg/ml Total Protein 7.5 (6.0-8.3) gm/dl Albumin 4.2 (3.4-5.0) gm/dl Globulin 3.3 (2.5-4.0) gm/dl Albumin/Globulin Ratio 1.3 (0.9-2) Lipase 25 (11-82) U/L SARS-CoV-2, RNA, NAAT NEGATIVE (NEGATIVE) Diagnostic Findings ULTRASOUND RIGHT UPPER QUADRANT ABDOMEN CLINICAL HISTORY: Right upper quadrant abdominal pain. COMPARISON STUDY: Abdominal CT dated 09/26/2014. TECHNIQUE: Real-time, grayscale, and color flow sonography of the right upper quadrant of the abdomen was performed. Images are reviewed in the transverse and longitudinal planes. FINDINGS: Liver: The liver is normal in size and echotexture. There is no intrahepatic biliary ductal dilatation. The main portal vein is patent. Gallbladder: The gallbladder is mildly distended and contains both stones and sludge. The gallbladder wall is mildly thickened measuring up to 4 mm and there is mild edematous. No pericholecystic fluid as seen. A sonographic Klein's sign could not be evaluated as the patient received analgesia. The common bile duct measures up to 0.4 cm in diameter. Pancreas: Visualized portions of the pancreatic head are normal in appearance. The majority of the pancreas was not well-visualized due to overlying bowel gas. Right kidney: Survey images of the right kidney demonstrate normal size and echotexture. There is no hydronephrosis. 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 Ascites: None. IMPRESSION: 1. Cholelithiasis and biliary sludge within an abnormal appearing gallbladder. Acute cholecystitis is not excluded and surgical consultation is advised. If clinically warranted a nuclear hepatobiliary scan would be confirmatory. 2. There is no intra or extrahepatic biliary ductal dilatation.
--- NOTE | 2023-01-05 12:30 | Anesthesiology Consultation ---
Date of Service January 05, 2023 Assessment & Plan (1) Encounter for pre-operative examination: Chart Review Chart Review: Acceptable Risk for Surgery and Patient NOT seen in Pre Admission Testing Consults Requested none History Surgery Operation Date: 01/05/23 12:10 Proposed Procedures p Laparoscopic Cholecystectomy - Charlie Oglesby MD Height/Weight Height: 5 ft 0.5 in Weight: 83.8 kg Allergies Allergy/AdvReac Type Severity Reaction Status Date / Time Sulfa (Sulfonamide Allergy Severe SHORTNESS Verified 01/05/23 09:08 Antibiotics) OF BREATH adhesive Allergy Intermediate Rash Verified 01/05/23 09:08 Aminoglycosides Allergy Intermediate RASH Verified 01/05/23 09:08 bacitracin Allergy Intermediate RASH Verified 01/05/23 09:08 neomycin Allergy Intermediate RASH Verified 01/05/23 09:08 polymyxin B Allergy Intermediate RASH Verified 01/05/23 09:08 Medications Home Medications Medication Instructions Recorded Confirmed Last Taken levocetirizine 5 mg tablet (Xyzal) 5 mg PO HS 07/29/19 01/05/23 01/04/23 montelukast 10 mg tablet 10 mg PO HS 07/29/19 01/05/23 01/04/23 lisinopril 5 mg tablet 5 mg PO DAILY 09/09/22 01/05/23 01/04/23 omeprazole 20 mg capsule,delayed 20 mg PO DAILY 09/09/22 01/05/23 01/04/23 release Active Medications Generic Name Dose Route Start Last Admin Trade Name Freq PRN Reason Stop Dose Admin Ketorolac Tromethamine 15 mg 01/05/23 10:02 01/05/23 12:02 Ketorolac Tromethamine 15 Mg/Ml Vial IV 01/10/23 10:01 15 mg Q6H PRN Administration Pain Past Medical History Medical History Endometriosis GERD (gastroesophageal reflux disease) HTN (hypertension) Kidney stone Pelvic pain Past Family History Family History Grandmother (Maternal) Breast cancer Grandfather (Maternal) Diabetes Heart disease Mother Hypertension Father Hypertension Aunt Ovarian cancer maternal Grandfather (Paternal) Heart disease Past Surgical History Surgical History H/O laparoscopy H/O: hysterectomy S/P tooth extraction Social History Smoking Status: Current every day smoker tobacco type: cigarettes Smoking cigarettes per day: 1 pack per day Do You Dip or Chew Tobacco: No Hx Alcohol Use: Yes Alcohol Intake Frequency Comment: 2 drinks per week, social Hx Substance Use: No Physical Exam Vital Signs Last Vital Signs Temp 98.1 F 01/05/23 11:29 Pulse 60 01/05/23 12:23 Resp 18 01/05/23 11:29 BP 130/84 01/05/23 11:29 Pulse Ox 94 01/05/23 11:29 O2 Del Method Room Air 01/05/23 11:29 Testing Laboratory Results 01/05/23 06:13 01/05/23 06:13 Electrocardiogram Date: 01/04/23 Findings: + NSR @ (catia)
[2023-01-05] MEDS ORDERED: fentaNYL citrate PF 100 MCG/2 ML VIAL IV PRN (12:31)
[2023-01-05] MEDS ORDERED: ePHEDrine sulfate 50 MG/ML AMP IV PRN (12:31)
[2023-01-05] MEDS ORDERED: ATROPINE SULFATE 0.1 MG/ML 10ML SYR IV PRN (12:31)
[2023-01-05] MEDS: NSS + 20MEQ KCL 20 MEQ/1,000 ML BAG IV SCH (12:32)
[2023-01-05] MEDS ORDERED: MIDAZOLAM HCL 1 MG/ML 2ML VIAL ONE (13:09)
[2023-01-05] MEDS ORDERED: fentaNYL citrate PF 100 MCG/2 ML VIAL ONE ×2 (13:12→14:50)
[2023-01-05] MEDS ORDERED: LARYING-O-JET KIT (LTA) ONE (13:13)
[2023-01-05] MEDS ORDERED: FAMOTIDINE/PF 20 MG/2 ML VIAL IV ONE (13:16)
[2023-01-05] MEDS ORDERED: ACETAMINOPHEN 1000 MG/100 ML IV IV ONE (13:16)
[2023-01-05] MEDS ORDERED: BUPIVACAINE/EPINEPHRINE 0.25% 1:200,000 30 ML VIAL ONE (13:18)
[2023-01-05] MEDS ORDERED: SCOPOLAMINE 1 MG TDSY TD ONE (13:22)
[2023-01-05] MEDS ORDERED: ONDANSETRON INJ 2 MG/ML 2 ML VIAL ONE (14:01)
[2023-01-05] MEDS ORDERED: ROCURONIUM BROMIDE 10 MG/ML 5 ML VIAL IV ONE (14:01)
[2023-01-05] MEDS ORDERED: DEXAMETHASONE SOD INJ 4 MG/ML VIAL ONE (14:01)
[2023-01-05] MEDS ORDERED: diphenhydrAMINE 50 MG/ML VIAL ONE (14:11)
[2023-01-05] MEDS ORDERED: KETOROLAC 30 MG/ML VIAL ONE (14:12)
[2023-01-05] MEDS ORDERED: SUGAMMADEX SODIUM 200 MG/2 ML VIAL IV ONE (14:12)
--- NOTE | 2023-01-05 14:33 | Post Operative Brief Note ---
Immediate Post Op Note v1 Date of Surgery January 05, 2023 Pre & Post Diagnosis Operation Date: 01/05/23 12:10 Pre-Op Diagnosis: Acute cholecystitis Post-Op Diagnosis: Acute cholecystitis I identified the patient and participated in the time-out.: Yes Procedure Operation Date: 01/05/23 12:10 Actual Procedures p Laparoscopic Cholecystectomy(Not Applicable) - Charlie Oglesby MD Surgeon Charlie Oglesby MD Property Consultant NIKITA Castro assisted with tissue retraction, camera op, closure Estimated Blood Loss 5 Findings Consistent with Post-Op Diagnosis Acute cholecystitis
--- NOTE | 2023-01-05 14:34 | Operative Report ---
Post Operative Report Pre & Post Diagnosis Operation Date: 01/05/23 12:10 Pre-Op Diagnosis: Acute cholecystitis Post-Op Diagnosis: Acute cholecystitis I identified the patient and participated in the time-out.: Yes Procedure Operation Date: 01/05/23 12:10 Actual Procedures p Laparoscopic Cholecystectomy(Not Applicable) - Charlie Oglesby MD Surgeon Charlie Oglesby MD Sound Equipment Mechanic NIKITA Castro assisted with tissue retraction, camera op, closure Estimated Blood Loss 5 Findings Consistent with Post-Op Diagnosis Acute gangrenous cholecystitis Specimens Gallbladder Drains None Anesthesia Type General Complications No immediate complications Description of Procedure The patient was taken to the operating room, and placed supine on the operating table. A timeout was performed, perioperative antibiotics were administered, SCD boots were placed. After adequate anesthesia and analgesia was obtained, the abdomen was prepped and draped in the normal sterile fashion. Local anesthetic was injected into and around the proposed incision sites. An incision was made with a 15 blade scalpel in the supraumbilical region and carried down to the level of the fascia. The fascia was grasped with a trach hook, and a varies needle was used to enter the abdominal cavity. The abdomen was insufflated to a pressure of 15 mmHg, and a 11 mm trocar was placed in this location. A 10 mm, 30 degree laparoscope was placed into the abdominal cavity, and the abdomen was surveyed. Two 5 mm trochars were placed along the right costal margin, and one 5 mm trocar was placed in the subxiphoid region under direct visualization. The gallbladder was grasped and retracted cephalad and laterally, exposing the triangle of Calot. Dissection began in the triangle with a combination of blunt dissection with the [place] dissector, and judicious use of the hook cautery. The cystic duct and cystic artery were dissected free circumferentially, and a critical view of safety was obtained. The cystic duct and cystic artery were clipped and transected, and the gallbladder was removed from the gallbladder fossa with the hook cautery. The camera was switched to a 5 mm, the gallbladder was placed in an Endo Catch bag, and removed via the supraumbilical port site. The camera was switched back to the 10 mm camera, and the abdomen was surveyed again. Hemostasis was checked and attended, and was excellent. The abdomen was copiously irrigated and suctioned free. Again hemostasis was checked and was excellent. All trochars were removed under direct visualization. The abdomen was desufflated. The fascia in the 11 mm port site was closed with a 0 Vicryl suture. The skin was closed with a running 4-0 Monocryl subcuticular stitch. Dermabond was applied. The patient tolerated the procedure without complication, and was transferred in stable condition to the PACU. All instrument, needle, and sponge counts were correct at the end of the case. My assistant distribution manager was necessary throughout the procedure for tissue retraction, possible camera operation, and closure of the wounds. I understand that section 1842(b)(7)(D) of the Social Security act generally prohibits Medicare physician fee schedule payment for the services of assistants at surgery in teaching hospitals when qualified residents are available to furnish such services. I certify that the services for which payment is claimed were medically necessary and that no qualified resident was available to perform the services. I further understand that these services are subject to postpayment review by the Medicare carrier. I attest to the content of the Intraoperative Record and any orders documented therein. Any exceptions are noted below.
--- NOTE | 2023-01-05 15:38 | Anesthesiology Progress Note ---
Date of Service January 05, 2023 Anesthesia Post Procedure Vital Signs Vital Signs: Temp Pulse Pulse Pulse Resp BP BP 01/05/23 15:15 75 17 127/80 01/05/23 15:25 65 17 112/70 01/05/23 15:05 77 15 133/87 01/05/23 14:55 97.7 F 88 17 123/80 01/05/23 12:55 98.8 F 65 18 01/05/23 12:23 60 01/05/23 11:29 98.1 F 76 18 01/05/23 11:05 72 15 122/86 01/05/23 10:30 72 15 122/86 01/05/23 10:00 71 18 131/79 01/05/23 09:30 69 18 129/85 01/05/23 09:00 76 17 135/76 01/05/23 08:30 67 18 124/76 01/05/23 07:30 55 L 16 119/74 01/05/23 07:00 53 L 21 122/74 01/05/23 06:15 58 L 01/05/23 06:23 70 20 01/05/23 06:17 97.5 F L 60 20 133/72 BP Pulse Ox O2 Del Method O2 Flow Rate 01/05/23 15:15 97 Oxymask 4 01/05/23 15:25 98 Oxymask 4 01/05/23 15:05 97 Oxymask 4 01/05/23 14:55 97 Oxymask 4 01/05/23 12:55 132/72 97 Room Air 01/05/23 12:23 01/05/23 11:29 130/84 94 Room Air 01/05/23 11:05 97 Room Air 01/05/23 10:30 97 01/05/23 10:00 97 01/05/23 09:30 97 01/05/23 09:00 96 01/05/23 08:30 98 01/05/23 07:30 97 01/05/23 07:00 96 01/05/23 06:15 01/05/23 06:23 99 Room Air 01/05/23 06:17 98 Room Air Pain Intensity Chest: Pain Intensity: 3 Transfer of Care Handoff Completed per policy Notes Mental Status: alert / awake / arousable and participated in evaluation Patient Amnestic to Procedure: Yes Nausea / Vomiting: adequately controlled Pain: adequately controlled Airway Patency, RR, SpO2: stable & adequate BP & HR: stable & adequate Hydration State: stable & adequate Anesthetic Complications: no major complications apparent and Pt Satisfied with anesthetic care
[2023-01-05] MEDS ORDERED: diphenhydrAMINE Capsule 25 MG CAP PO PRN (16:10)
[2023-01-05] MEDS ORDERED: oxyCODONE/ACETAMINOPHEN 5mg/325mg TAB PO PRN (16:10)
[2023-01-05] MEDS: PIPERACILLIN/TAZOBACTAM 4.5 GM in DEXTROSE 5% 100 ML IV SCH (18:05)
[2023-01-06] MEDS: NSS + 20MEQ KCL 20 MEQ/1,000 ML BAG IV SCH (01:21)
[2023-01-06] MEDS: PIPERACILLIN/TAZOBACTAM 4.5 GM in DEXTROSE 5% 100 ML IV SCH ×2 (01:21→09:52)
[2023-01-06 08:09] LABS: Hematocrit (blood only) 33.7 % (37.0-47.0); Mean Corpuscular Hemoglobin 28.2 pg (25.0-34.0); Mean Corpuscular Hgb Conc 32.6 g/dL (32.0-36.0); Mean Corpuscular Volume 86.4 fL (80.0-100.0); Mean Platelet Volume 10.8 fL (9.4-12.4); Platelet Count 234 K/uL (130-400); RDW Coefficient of Variation 13.6 % (11.5-14.5); RDW Standard Deviation 42.5 fL (36.4-46.3); White Blood Count 11.99 K/ul (4.8-10.8)
[2023-01-06 08:26] LABS: BUN Creatinine Ratio 9.8 (10-20); Calcium 9.2 mg/dl (8.6-10.3); Est GFR (African American) 78.6 ml/min; Est GFR (Non-African American) 67.8 ml/min; Magnesium 1.9 mg/dl (1.7-2.4); Potassium 4.6 mmol/L (3.5-5.1)
--- NOTE | 2023-01-06 08:30 | Electrocardiogram Report ---
Test Reason : Blood Pressure : / mmHG Vent. Rate : 051 BPM Atrial Rate : 051 BPM P-R Int : 114 ms QRS Dur : 076 ms QT Int : 484 ms P-R-T Axes : 042 030 054 degrees QTc Int : 446 ms Sinus bradycardia with sinus arrhythmia Diffuse Minor Nonspecific T wave abnormality Abnormal ECG When compared with ECG of 05-JAN-2023 06:16, No significant change Confirmed by Mihir Loving ([id number]) on 01/06/2023 8:29:55 AM Referred By: REFERRED SELF Confirmed By:Mihir Loving
--- NOTE | 2023-01-06 09:25 | Cardiology Progress Note ---
Date of Service January 06, 2023 Assessment & Plan (1) Acute cholecystitis: (2) Preop cardiovascular exam: Plan Reviewed the patient's telemetry. Her heart rhythm has been stable. Surgery was uneventful. From a cardiac standpoint she can be discharged with follow-up to her PCP. Admission and Anticipated Discharge Date Admission Date: January 05, 2023 Subjective Surgery was uneventful. Patient has no complaints today. Review of Systems Review of Systems: Review of Systems: See HPI for pertinent positives. All other 10 point review of systems are negative. Physical Exam Physical Exam: Current Inpatient Medications General: no acute distress and stated age Head: normocephalic, no masses, lesions, tenderness or abnormalities Eyes: conjunctiva are pink and non-injected, sclera clear Neck: supple, no adenopathy, no bruits, normal jugular venous pulse, no hepatojugular reflux Chest: normal shape and normal respiratory effort Lungs: clear to auscultation and percussion Cardiac Exam: - regular rate & rhythm, no murmurs gallops or rubs - normal S1, normal S2 Pulses: 2(+) throughout Abdomen: abdomen soft, non-tender, no abnormal masses and no hepatosplenomegaly Musculoskeletal: no gait disturbance, no joint inflammation, no deforming arthritis Extremities: no edema and no cyanosis Neuro: grossly normal exam Results & Data Vital Signs (Past 12 Hours) Vital Signs Temp Pulse Pulse Resp BP BP Pulse Ox 01/06/23 07:42 36.9 C 56 L 16 121/70 96 01/06/23 04:23 36.8 C 51 L 20 111/59 L 95 01/05/23 23:00 36.7 C 18 101/53 L 96 01/05/23 22:57 58 L O2 Del Method 01/06/23 07:42 Room Air 01/06/23 04:23 Room Air 01/05/23 23:00 Room Air 01/05/23 22:57 Laboratory Results Laboratory Results - last 24 hr 01/05/23 01/05/23 01/06/23 09:00 12:18 07:20 WBC 11.99 H RBC 3.90 L Hgb 11.0 L Hct 33.7 L MCV 86.4 MCH 28.2 MCHC 32.6 RDW Std Deviation 42.5 RDW Coeff of Aayush 13.6 Plt Count 234 MPV 10.8 Sodium Potassium Chloride Carbon Dioxide Anion Gap BUN Creatinine Est Cr Clr Drug Dosing Est GFR ( Amer) Est GFR (Non-Af Amer) BUN/Creatinine Ratio Glucose Calcium Magnesium Troponin I High Sens < 2.3 SARS-CoV-2, RNA, NAAT NEGATIVE 01/06/23 07:20 WBC RBC Hgb Hct MCV MCH MCHC RDW Std Deviation RDW Coeff of Aayush Plt Count MPV Sodium 137 Potassium 4.6 D Chloride 107 Carbon Dioxide 25 Anion Gap 5 BUN 10 Creatinine 1.02 Est Cr Clr Drug Dosing 71.0 Est GFR ( Amer) 78.6 Est GFR (Non-Af Amer) 67.8 BUN/Creatinine Ratio 9.8 L Glucose 111 H Calcium 9.2 Magnesium 1.9 Troponin I High Sens SARS-CoV-2, RNA, NAAT Medications Administered Current Inpatient Medications Acetaminophen (Acetaminophen 325 Mg Tab) 650 mg PO Q4H PRN PRN Reason: Moderate Pain (Scale 4, 5, 6) Stop: 02/04/23 11:25 Diphenhydramine HCl (Diphenhydramine Capsule 25 Mg Cap) 25 mg PO Q4H PRN PRN Reason: hives, itching or insomnia Stop: 02/04/23 16:09 Hydralazine HCl (Hydralazine Hcl 20 Mg/Ml Vial) 10 mg IV Q6H PRN PRN Reason: Hypertension Stop: 02/04/23 10:40 Hydromorphone HCl (Hydromorphone Inj 0.5 Mg/0.5 Ml Syr) 0.5 mg IV Q6H PRN PRN Reason: Pain Stop: 01/19/23 11:25 Piperacillin Sod/Tazobactam (Sod 4.5 gm/ Dextrose) 120 mls @ 30 mls/hr IV Q8H [facility]; Protocol Stop: 01/15/23 17:59 Last Infusion: 01/06/23 05:07 Dose: Infused Potassium Chloride/Sodium Chloride (Normal Saline W/20 Meq Kcl) 20 meq in 1,000 mls @ 80 mls/hr IV .[id number] [facility]; Protocol Stop: 02/04/23 11:44 Last Admin: 01/06/23 01:21 Dose: 80 mls/hr Ketorolac Tromethamine (Ketorolac Tromethamine 15 Mg/Ml Vial) 15 mg IV Q6H PRN PRN Reason: Pain Stop: 01/10/23 10:01 Last Admin: 01/05/23 23:07 Dose: 15 mg Ondansetron HCl (Ondansetron Inj 2 Mg/Ml 2 Ml Vial) 4 mg IV Q4H PRN PRN Reason: Nausea And Vomiting Stop: 02/04/23 11:25 Oxycodone/Acetaminophen (Oxycodone/Acetaminophen 5mg/325mg Tab) 1 tab PO Q4H PRN PRN Reason: MODERATE Pain (4,5,6) & Pre PT Stop: 01/19/23 16:09
--- NOTE | 2023-01-06 10:57 | Surgery Progress Note ---
Date of Service January 06, 2023 Assessment & Plan (1) Acute cholecystitis: Plan POD 1 s/p lap mirella doing well advance diet and activity as tolerated can be D/C to home today f/u in 2 weeks in office Admission and Anticipated Discharge Date Admission Date: January 05, 2023 Subjective doing well. tolerating diet. no n/v. minimal pain. no fevers Physical Exam Physical Exam: NAD A&Ox3 AFVSS Abd soft, minimal tenderness, ND incisions C/D/I with dermabond Results & Data Vital Signs (Past 12 Hours) Vital Signs Temp Pulse Pulse Resp BP BP Pulse Ox 01/06/23 07:42 36.9 C 56 L 16 121/70 96 01/06/23 04:23 36.8 C 51 L 20 111/59 L 95 01/05/23 23:00 36.7 C 18 101/53 L 96 01/05/23 22:57 58 L O2 Del Method 01/06/23 07:42 Room Air 01/06/23 04:23 Room Air 01/05/23 23:00 Room Air 01/05/23 22:57
--- NOTE | 2023-01-06 12:19 | Discharge Summary ---
Discharge Summary Date of Service January 06, 2023 Notes For Next Care Provider Acute cholecystitis s/p laparoscopic cholecystectomy by Dr. Oglesby on 01/05/23. Follow-up with general surgery in 2 weeks. Brief run of wide-complex arrhythmia on monitor pre-op. Evaluated by cards, telemetry and EKG has been stable. Ok for PCP follow-up. Medication Changes From Visit PRN tylenol and ibuprofen for pain Admission HPI Per Admitting Provider This is a 42 yo F with PMHx of HTN, GERD, hysterectomy who presents with acute onset of abdominal pain in the epigastric region and chest pain which radiated into back. She had cold sweats and nausea, and vomited every hour until calling an ambulance this morning. Pt reports her pain is right under her sternum and at the bottom of it and in the right upper quadrant. Rating it a 6/10. She state it has localized more in the RUQ and denies having chest pain currently. Pt lives at home with her two sons, ages 5 and 13, and boyfriend. Pt denies ever having pain like this before. She reports pain is improved with toradol for pain. She last at 2:30 pm yesterday and had a [employer] salad for lunch and dinner. Did not tolerate any of her morning medications due to vomiting. Admission Exam Per Admitting Provider General: awake, alert, + apparent distress Head: Normocephalic, atraumatic ENT: PERRL, EOMI, no pharyngeal exudate, mucous membranes moist Chest: Clear to auscultation, on room air, no adventitious breath sounds Cardiac: Regular rate and rhythm, no murmur, no JVD, normal peripheral pulses, good capillary refill Abdominal: NABS x 4 quadrants, soft, nondistended, nontender to palpation, no rebound or guarding Extremities: Normal inspection, no peripheral edema or erythema, calfs nontender to palpation Psych: Normal mood and affect Neuro: AAO x 3, strength intact bilaterally and rated 5/5, no motor deficits, s peech is clear, no peripheral sensory deficits Principal Dx & Hospital Course #1 = Principal Diagnosis (1) Acute cholecystitis: (2) Chest pain: (3) HTN (hypertension): (4) GERD (gastroesophageal reflux disease): (5) Wide-complex tachycardia: Plan This is a 42 yo F with PMHx of HTN, GERD, hysterectomy who presents with acute onset of abdominal pain in the epigastric region and chest pain which radiated into back and was admitted with acute cholecystitis. Underwent laparoscopic cholecystectomy by Dr. Oglesby on 01/05/23. Follow-up with general surgery in 2 weeks. See other instructions below. Pain managed with PRN Tylenol and Toradol only. Of note, pre-operatively patient was noted to have a brief run of wide- complex arrhythmia in the emergency department. Evaluated by cardiology, telemetry and EKG has been stable and without recurrence. Okay to follow-up with PCP. Hemodynamically stable at time of discharge home. Discharge Exam Gen: WD/WN, NAD, lying in bed, A&Ox3 HEENT: Normocephalic, atraumatic, conjunctivae moist, sclerae anicteric, mucous membranes moist Lung: Clear to Auscultation bilaterally, no wheezes/rales/rhonchi Heart: Regular rate, regular rhythm, no murmurs, rubs, or gallops Abdomen: Soft, NT, ND +BS x 4, healing lap incisions Extremities: no edema Skin: Warm, no rash Updated Medication List Medication Instructions Recorded Confirmed Type levocetirizine 5 mg tablet (Xyzal) 5 mg PO HS 07/29/19 01/05/23 History montelukast 10 mg tablet 10 mg PO HS 07/29/19 01/05/23 History lisinopril 5 mg tablet 5 mg PO DAILY 09/09/22 01/05/23 History omeprazole 20 mg capsule,delayed 20 mg PO DAILY 09/09/22 01/05/23 History release Hospital Stay Data Consultations 01/05/23 10:22 Consult Cardiology Routine 01/05/23 11:26 Consult General Surgery Routine Procedures Performed Operation Date: 01/05/23 12:10 Actual Procedures p Laparoscopic Cholecystectomy(Not Applicable) - Charlie Oglesby MD Diagnostic Imagining Performed 01/05/23 06:57 US gallbladder Stat Pending Results Patient Have Any Pending Studies at Discharge: Yes (gallbladder pathology) Discharge Instructions Given to Patient (Per Discharging Provider) MEDICATION CHANGES: May alternate extra strength Tylenol and Ibuprofen as needed for mild to moderate pain SUMMARY OF TEST RESULTS: You were admitted to hospital for acute cholecystitis Underwent laparoscopic cholecystectomy by Dr. Oglesby on 01/05/23 Follow-up with general surgery in 2 weeks. See other instructions below Was noted to have a brief run of wide-complex arrhythmia in the emergency department. Evaluated by cardiology, telemetry and EKG has been stable. Okay to follow-up with PCP. PENDING TEST RESULTS: None RECOMMENDATIONS FOR FOLLOW-UP: Follow up with PCP and general surgery as scheduled. Continue medication regimen as scheduled aside from changes noted above. OTHER INSTRUCTIONS: Seek medical attention if you have: * temperature above 101 * chest pain or trouble breathing * abdominal pain, nausea, vomiting * diarrhea, dark stools or bloody stools * any unanswered questions or concerns Call 911 if symptoms are severe. Please take good care of yourself. Call if you have any questions or problems. You can reach a [facility] hospitalist on duty at [facility] 24 hours a day by calling [phone]. Total Time Total Time Spent Total Time Spent (In Minutes): 45 Supervising Physician Co-Signing Physician Notes Patient was seen and examined independently at bedside. Chart reviewed. Case discussed with Tammy Kaur PA-C and agree with the documentation above. In summary, this is a 42 year old female admitted with acute cholecystitis and is s /p lap mirella yesterday. Post op course was uneventful. Pain is controlled. Tolerating diet well without issues.Had NSVT prior to surgery but nothing since- tele unremarkable. Anxious to go home. Stable for discharge home with OP follow up with surgery.
== END 2023-01-06 14:02 | disposition home or self-care (01) | DRG 418 ==
LOC: ED 06:09 → 2E 09:56 → SUATTDRO 09:56 → 2E 11:05